=== PATIENT | female | born 1990 | race Caucasian/White ===

== ENCOUNTER 2018-09-09 16:31 | Emergency (ER) | payer MEDICAID ==
[~2018-09-09] VITALS: Ht 154.9 cm; Wt 54.4 kg
[2018-09-09 16:53] VITALS: BP 107/57
[2018-09-09] MEDS ORDERED: HYDROcodone-ACET 5/325MG TAB PO ONE (19:00)
[2018-09-09] MEDS ORDERED: BACLOFEN 10 MG TAB PO ONE (19:00)
== END 2018-09-09 20:06 | disposition home or self-care (01) ==
LOC: ER 16:37
DX: S16.1XXA Strain of muscle, fascia and tendon at neck level, initial encounter (principal); Z88.8 Allergy status to other drugs, medicaments and biological substances; V49.49XA Driver injured in collision with other motor vehicles in traffic accident, initial encounter; Y93.89 Activity, other specified; Y99.8 Other external cause status; Y92.488 Other paved roadways as the place of occurrence of the external cause
CPT/HCPCS: 70450; 72125